=== PATIENT | female | born 1940 | race Caucasian/White ===

== ENCOUNTER 2023-05-18 14:14 | Emergency (ER) | payer MEDICARE ==
[~2023-05-18] VITALS: Ht 165.1 cm; Wt 79.2 kg
[2023-05-18 14:45] VITALS: BP 148/82
[2023-05-18 15:09] VITALS: BP 148/82
== END 2023-05-18 15:30 | disposition home or self-care (01) ==
LOC: ED 14:14
PROC: 0HQ0XZZ Repair Scalp Skin, External Approach (ICD-10-PCS; principal; 2023-05-18)
DX: S01.01XA Laceration without foreign body of scalp, initial encounter (principal); W22.09XA Striking against other stationary object, initial encounter; Y93.H9 Activity, other involving exterior property and land maintenance, building and construction; Y92.007 Garden or yard of unspecified non-institutional (private) residence as the place of occurrence of the external cause

== ENCOUNTER 2023-05-25 08:50 | Emergency (ER) | payer MEDICARE ==
[~2023-05-25] VITALS: Ht 165.1 cm; Wt 77.1 kg
[2023-05-25 08:58] VITALS: BP 176/82
[2023-05-25] MEDS ORDERED: AMOX/K CLAV875 M1 PO (09:41)
[2023-05-25 09:45] VITALS: BP 162/85
[2023-05-25 10:23] VITALS: BP 162/85
== END 2023-05-25 10:25 | disposition home or self-care (01) ==
LOC: ED 08:50
PROC: 0HQ0XZZ Repair Scalp Skin, External Approach (ICD-10-PCS; principal; 2023-05-25)
DX: S01.01XA Laceration without foreign body of scalp, initial encounter (principal); X58.XXXA Exposure to other specified factors, initial encounter